=== PATIENT | female | born 1995 | race Caucasian/White ===

== ENCOUNTER 2018-12-08 13:43 | Emergency (ER) | payer BC ==
[~2018-12-08] VITALS: Ht 175.3 cm; Wt 76.4 kg
[~2018-12-08 13:43] MED LIST: CLINDAGEL1 % EX; FERR SULFATE325 MG PO; IBUPROFEN600 MG; MOTRIN600 MG/TAB PO; PRENATA1 CHW PO; SPRINTEC 2828 DAY PO
[2018-12-08 16:00] VITALS: BP 122/61
== END 2018-12-08 16:00 | disposition home or self-care (01) | DRG 605 ==
LOC: ED 13:43
PROC: 0HQFXZZ Repair Right Hand Skin, External Approach (ICD-10-PCS; principal; 2018-12-08)
DX: S61.210A Laceration without foreign body of right index finger without damage to nail, initial encounter (principal); F17.290 Nicotine dependence, other tobacco product, uncomplicated; W26.1XXA Contact with sword or dagger, initial encounter; Y93.G1 Activity, food preparation and clean up; Y92.000 Kitchen of unspecified non-institutional (private) residence as the place of occurrence of the external cause

== ENCOUNTER 2022-02-03 15:16 | Emergency (ER) | payer SELFPAY ==
[~2022-02-03] VITALS: Ht 180.3 cm; Wt 77.2 kg
[2022-02-03 16:32] VITALS: BP 137/80
[2022-02-03 17:00] VITALS: BP 131/80
[2022-02-03 18:00] VITALS: BP 133/73
[2022-02-03] MEDS ORDERED: CLARITIN10 M2 PO (18:27)
[2022-02-03] MEDS ORDERED: AMOXICILLIN500 MG PO (18:27)
== END 2022-02-03 18:37 | disposition home or self-care (01) | DRG 153 ==
LOC: ED 15:16
DX: J02.9 Acute pharyngitis, unspecified (principal); F17.290 Nicotine dependence, other tobacco product, uncomplicated; Z20.822 Contact with and (suspected) exposure to COVID-19